=== PATIENT | male | born 1960 | race Caucasian/White ===

== ENCOUNTER 2018-11-05 13:19 | Emergency (ER) | payer MEDICAID ==
[~2018-11-05] VITALS: Ht 175.3 cm; Wt 81.4 kg
[2018-11-05] MEDS ORDERED: IBUP-1984 PO (14:37)
[2018-11-05 14:56] VITALS: BP 142/56
== END 2018-11-05 14:58 | disposition home or self-care (01) ==
LOC: ER 13:19
DX: M25.511 Pain in right shoulder (principal); Z79.899 Other long term (current) drug therapy; W18.2XXA Fall in (into) shower or empty bathtub, initial encounter; Y93.89 Activity, other specified; Y92.89 Other specified places as the place of occurrence of the external cause; Y99.8 Other external cause status
CPT/HCPCS: 73030; 99284